=== PATIENT | female | born 1945 | race Caucasian/White ===

== ENCOUNTER → 2017-07-22 | Outpatient (CLI) | payer MEDICARE, OTHER | END | disposition home or self-care (01) | LOC: MAMMO 10:00 | PROVIDERS: ATTEND Family Medicine | DX: Z12.31 Encounter for screening mammogram for malignant neoplasm of breast (principal) ==

== ENCOUNTER → 2019-01-24 | Outpatient (CLI) | payer MEDICARE, OTHER ==
--- NOTE | 2019-01-25 17:00 | MAM ---
EXAM DESCRIPTION: 3D Screening BILATERAL : Digital Mammography. CLINICAL HISTORY: 73 years Female SCREEN . No complaints. No personal or family history of breast cancer. Childbirth. Hysterectomy 45+ years ago. HRT 5 or more years ago. Bilateral cyst aspiration and left breast biopsy benign. Lifetime risk of developing breast cancer (Tyrer-Cuzick model)(%): 3.5. COMPARISON: Bilateral digital screening breast tomosynthesis 07/22/2017. TECHNIQUE: Bilateral CC and MLO projection full-field images, digital tomosynthesis mammographic technique. Bilateral digital 2-D full-field MLO images. CAD not available for tomosynthesis or 2-D images. FINDINGS: The breast parenchymal density pattern is: Heterogeneously dense breast tissue, which may obscure small masses. No skin thickening or nipple retraction. Bilateral multiple breast calcifications and ductal type fibroglandular tissues. Larger rim calcified mass posterior left breast is stable. Stable lateral nodule mid right breast. No new focal, stellate mass or density, focal asymmetry , and no suspicious microcalcifications bilaterally. Stable mammograms compared to prior study. IMPRESSION: Benign exam. BIRAD CATEGORY: 2 BENIGN FINDINGS. RECOMMENDATIONS: FOLLOW UP: Routine digital bilateral mammographic screening, one year interval from January 2019. Written communication explaining the IMPRESSION and follow-up, will be mailed to the patient and referring health care provider. According to the [employer], yearly mammograms are recommended starting at age 40 and continuing as long as a woman is in good health. Any breast change noted on a breast self-exam should be reported promptly to the patient's healthcare provider. Breast MRI is recommended for women with an approximately 20-25% or greater lifetime risk of breast cancer, including women with a strong family history of breast or ovarian cancer and women who have been treated for Hodgkin's disease. A negative mammographic report should not delay tissue diagnosis in patients with significant clinical history or physical findings. Extremely dense breast tissue limits the sensitivity of digital mammography. Electronically signed by: Wes Sepulveda MD 01/25/2019 4:58 PM CDT
== END ==
LOC: MAMMO 11:00
PROVIDERS: ATTEND Family Medicine
DX: Z12.31 Encounter for screening mammogram for malignant neoplasm of breast (principal)

== ENCOUNTER → 2019-08-26 | Outpatient (CLI) | payer MEDICARE, OTHER ==
--- NOTE | 2019-08-29 12:02 | RAD ---
EXAM DESCRIPTION: Lumbar Spine,Flex/Ext: CR/DR/x-ray. CLINICAL HISTORY: 73 years Female LUMBAR RADICULOPATHY COMPARISON: Flexion-extension radiographs cervical spine same visit. TECHNIQUE: 2 Views lumbar spine. Flexion and extension Lateral FINDINGS: Significant narrowing of the L2-3 disc space with spondylosis and endplate sclerosis and 2 mm retrolisthesis. Compression deformities: None. Bone Density: Decreased. Alignment: L4-L5 grade 1 anterolisthesis. 7.5 mm anterior migration of L4 on L5 with flexion and 5.5 mm anterior migration with extension. Possible radiolucency in one or both of the L5 pars. Reduction of L2-L3 retrolisthesis with extension. Minimal narrowing of the L5-S1 disc space on both images. Abdomen: Diffuse fecal matter and gas in the colon. IMPRESSION: 1. L4-L5 grade 1 anterolisthesis is 7.5 mm with flexion and 5.5 mm with extension. Possible spondylolysis L5 pars. Consider lumbar spine oblique images, CT scan, or MRI scan. 2. Advanced spondylosis L2-L3 with retrolisthesis which reduces with extension. Overall bone density is decreased. No compression type vertebral body fractures. Narrowing of the L5-S1 disc space. Electronically signed by: Wes Sepulveda MD 08/29/2019 12:00 PM [employer]
--- NOTE | 2019-08-29 13:22 | RAD ---
EXAM DESCRIPTION: Cervical Spine,Flex/Ext. CR/DR/XR. CLINICAL HISTORY: 73 years Female CERVICAL RADICULOPATHY COMPARISON: Lumbar spine flexion-extension images same date. TECHNIQUE: 2 views Lateral image of the entire cervical spine, flexion and extension. FINDINGS: Cervical type vertebra: 7. Disk spaces: Narrowing C5-C6 and C6-C7. Endplate reactive changes. Compression deformities: None. Bone Density: Minimally decreased. Alignment: Grade 1 anterolisthesis 2.5 mm at C3-C4 with flexion disappears with extension. Trace anterolisthesis at C4-C5 reflection disappears with extension, no spondylolisthesis with extension. Soft tissues: Small bone density anterior to the C5-C6 disc space on the flexion image. Unilateral versus bilateral facet arthrosis C5-6 and C6-7.. IMPRESSION: Anterolisthesis grade 1 at C3-C4 and trace anterolisthesis C4-C5, both with flexion, the superior with extension. No spondylolisthesis with extension. Spondylosis and disc space loss at C5-6 and C6-7. 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 Electronically signed by: Wes Sepulveda MD 08/29/2019 1:20 PM [facility]
== END ==
LOC: RAD 13:10
DX: M47.22 Other spondylosis with radiculopathy, cervical region (principal); M47.26 Other spondylosis with radiculopathy, lumbar region; M43.12 Spondylolisthesis, cervical region; M43.16 Spondylolisthesis, lumbar region; M46.92 Unspecified inflammatory spondylopathy, cervical region; M85.88 Other specified disorders of bone density and structure, other site; M51.87 Other intervertebral disc disorders, lumbosacral region